=== PATIENT | female | born 1990 ===

== ENCOUNTER 2019-12-04 13:25 | Inpatient (IN) | payer BC ==
[2019-12-04] MEDS ORDERED: Sodium Chloride 0.9% 2.5 ML Syringe FLUSH PRN (17:06)
[2019-12-04] MEDS ORDERED: Methylergonovine 0.2 MG/1 ML Amp IM PRN (17:06)
[2019-12-04] MEDS ORDERED: Sodium Chloride 0.9% 10 ML Syringe FLUSH PRN (17:06)
[2019-12-04] MEDS ORDERED: Water For Irrigation,Sterile 1,000 ML Container IRR PRN (17:06)
[2019-12-04] MEDS ORDERED: Carboprost Tromethamine 250 MCG/1 ML Amp IM PRN (17:06)
[2019-12-04] MEDS ORDERED: Butorphanol 1 MG/ML SDV IVPUSH PRN (17:06)
[2019-12-04] MEDS ORDERED: Misoprostol 200 MCG Tab PO PRN (17:06)
[2019-12-04] MEDS ORDERED: Tranexamic Acid 1,000 MG in Sodium Chloride 0.9% 100 ML IV PRN (17:06)
[2019-12-04] MEDS ORDERED: Nalbuphine 10 MG/1 ML Vial IVPUSH PRN (17:06)
[2019-12-04] MEDS ORDERED: Lidocaine 1% 50 ML MDV INJECT PRN (17:06)
[2019-12-04] MEDS ORDERED: Sodium Chloride 0.9% 10 ML SDV IV PRN (17:06)
[2019-12-04] MEDS ORDERED: Misoprostol 25 MCG (1/4 of 100 MCG) Tab VAG PRN ×2 (17:09)
[2019-12-04] MEDS ORDERED: Terbutaline 1 MG/ML SDV SUBCUT PRN (17:09)
[2019-12-04] MEDS ORDERED: Oxytocin/0.9 % Sodium Chloride 30 UNIT/500 ML BAG IV SCH ×2 (17:15)
[2019-12-04] MEDS: Lactated Ringers 1,000 ML IV SCH (17:45)
[2019-12-04] MEDS ORDERED: Oxytocin/0.9 % Sodium Chloride 30 UNIT/500 ML BAG ONE (17:51)
[2019-12-04 18:34] LABS: BLOOD UREA NITROGEN,BUN 9 mg/dL (7.0-18.0); CARBON DIOXIDE,CO2 20.2 mmol/L (21.0-32.0); CHLORIDE,CL 103 mmol/L (98-107); GLUCOSE RANDOM 77 mg/dL (74-106); POTASSIUM,K 3.6 mmol/L (3.5-5.1); SODIUM,NA 137 mmol/L (136-145)
[2019-12-05] MEDS: Lactated Ringers 1,000 ML IV SCH ×3 (00:20→07:37)
[2019-12-05] MEDS ORDERED: Ropivacaine 0.2% PF 2 MG/ML 20 ML SDV ONE (00:21)
[2019-12-05] MEDS ORDERED: fentaNYL 100 MCG/2 ML SDV ONE (00:21)
[2019-12-05] MEDS ORDERED: Ropivacaine HCl/PF 100 ML ONE ×2 (00:22→11:55)
--- NOTE | 2019-12-05 01:00 | PCM.PREANE ---
Preanesthetic Assessment - Procedure Proposed Procedure: JENN - Anesthesia/Transfusion/Family Hx Anesthesia History: Prior Anesthesia Without Reaction Family History of Anesthesia Reaction: No Transfusion History: No Prior Transfusion(s) Intubation History: Unknown - Review of Systems General: No Symptoms Pulmonary: No Symptoms Cardiovascular: No Symptoms Gastrointestinal: No Symptoms Neurological: No Symptoms Other: Reports: None - Physical Assessment NPO Status Date: 12/05/19 NPO Status Time: 00:30 (Clear liquids) Height: 1.65 m Weight: 98.883 kg ASA Class: 2 Mental Status: Alert & Oriented x3 Airway Class: Mallampati = 2 Dentition: Reports: Normal Dentition Thyro-Mental Finger Breadths: 3 Mouth Opening Finger Breadths: 3 ROM/Head Extension: Full Lungs: Clear to Auscultation Cardiovascular: Regular Rate - Lab Values: Laboratory Last Values WBC 12.26 K/uL (4.0-11.0) H 12/04/19 17:54 RBC 4.36 M/uL (4.30-5.90) 12/04/19 17:54 Hgb 12.4 g/dL (12.0-16.0) 12/04/19 17:54 Hct 37.0 % (36.0-46.0) 12/04/19 17:54 MCV 84.9 fL (80.0-98.0) 12/04/19 17:54 MCH 28.4 pg (27.0-32.0) 12/04/19 17:54 MCHC 33.5 g/dL (31.0-37.0) 12/04/19 17:54 RDW Std Deviation 45.3 fl (28.0-62.0) 12/04/19 17:54 RDW Coeff of Allie 15 % (11.0-15.0) 12/04/19 17:54 Plt Count 317 K/uL (150-400) 12/04/19 17:54 MPV 9.40 fL (7.40-12.00) 12/04/19 17:54 Nucleated RBC % 0.0 /100WBC 12/04/19 17:54 Nucleated RBCs # 0 K/uL 12/04/19 17:54 Sodium 137 mmol/L (136-145) 12/04/19 17:54 Potassium 3.6 mmol/L (3.5-5.1) 12/04/19 17:54 Chloride 103 mmol/L (98-107) 12/04/19 17:54 Carbon Dioxide 20.2 mmol/L (21.0-32.0) L 12/04/19 17:54 BUN 9 mg/dL (7.0-18.0) 12/04/19 17:54 Creatinine 0.7 mg/dL (0.6-1.0) 12/04/19 17:54 Est Cr Clr Drug Dosing 106.70 mL/min 12/04/19 17:54 Estimated GFR (MDRD) > 60.0 ml/min 12/04/19 17:54 Glucose 77 mg/dL (74-106) 12/04/19 17:54 Uric Acid 5.8 mg/dL (2.6-7.2) 12/04/19 17:54 Calcium 8.2 mg/dL (8.5-10.1) L 12/04/19 17:54 Total Bilirubin 0.2 mg/dL (0.2-1.0) 12/04/19 17:54 AST 18 IU/L (15-37) 12/04/19 17:54 ALT 17 IU/L (14-63) 12/04/19 17:54 Alkaline Phosphatase 126 U/L (46-116) H 12/04/19 17:54 Total Protein 6.8 g/dL (6.4-8.2) 12/04/19 17:54 Albumin 2.6 g/dL (3.4-5.0) L 12/04/19 17:54 Globulin 4.2 g/dL (2.6-4.0) H 12/04/19 17:54 Albumin/Globulin Ratio 0.6 (0.9-1.6) L 12/04/19 17:54 SARS-CoV-2 RNA (RT-PCR) NEGATIVE (NEGATIVE) 12/04/19 17:22 Blood Type A POSITIVE 12/04/19 17:58 Antibody Screen NEGATIVE 12/04/19 17:58 - Allergies Allergies/Adverse Reactions: Allergies Allergy/AdvReac Type Severity Reaction Status Date / Time No Known Allergies Allergy Verified 12/04/19 17:06 - Blood Blood Available: No Product(s) Available: None - Anesthesia Plan Pre-Op Medication Ordered: None - Acknowledgements Anesthesia Type Planned: Epidural Pt an Appropriate Candidate for the Planned Anesthesia: Yes Alternatives and Risks of Anesthesia Discussed w Pt/Guardian: Yes Pt/Guardian Understands and Agrees with Anesthesia Plan: Yes Additional Comments: Discussed. ? answered. 4-5cm, active labor, pain /10. Permit signed. Acceptable candidate. PreAnesthesia Questionnaire - Past Health History Medical/Surgical History: Denies Medical/Surgical History WELT RANDER History: Reports: - SUBSTANCE USE Smoking Status *Q: Never Smoker Second Hand Smoke Exposure: No Recreational Drug Use History: No - CURRENT (IN HOUSE) MEDS Current Meds: Current Medications Butorphanol Tartrate (Stadol) 1 mg IVPUSH Q1H PRN PRN Reason: Pain Carboprost Tromethamine (Hemabate Ds) 250 mcg IM ASDIRECTED PRN PRN Reason: Post Hemorrhage Oxytocin/Sodium Chloride (Oxytocin 30 Unit/500 Ml-Ns) 30 unit in 500 mls @ 500 mls/hr IV TITRATE ELSA Tranexamic Acid 1,000 mg/ (Sodium Chloride) 110 mls @ 660 mls/hr IV ONETIME PRN PRN Reason: Bleeding Lactated Ringer's (Ringers, Lactated) 1,000 mls @ 150 mls/hr IV ASDIRECTED ELSA Last Admin: 12/05/19 00:20 Dose: 999 mls/hr Documented by: Oxytocin/Sodium Chloride (Oxytocin 30 Unit/500 Ml-Ns) 30 unit in 500 mls @ 2 mls/hr IV TITRATE ELSA; Protocol Last Titration: 12/04/19 22:41 Dose: 16 munits/min, 16 mls/hr Documented by: Lidocaine HCl (Xylocaine 1%) 50 ml INJECT ONETIME PRN PRN Reason: Laceration repair Methylergonovine Maleate (Methergine) 0.2 mg IM ASDIRECTED PRN PRN Reason: Post Hemorrhage Misoprostol (Cytotec) 200 mcg PO ONETIME PRN PRN Reason: Post Hemorrhage Misoprostol (Cytotec) 25 mcg VAG ONETIME PRN PRN Reason: Cervical Ripening Misoprostol (Cytotec) 25 mcg VAG Q4H PRN PRN Reason: Cervical Ripening Nalbuphine HCl (Nubain) 10 mg IVPUSH Q1H PRN PRN Reason: Pain (severe 7-10) Sodium Chloride (Saline Flush) 10 ml FLUSH ASDIRECTED PRN PRN Reason: Keep Vein Open Sodium Chloride (Saline Flush) 2.5 ml FLUSH ASDIRECTED PRN PRN Reason: Keep Vein Open Sodium Chloride (Normal Saline) 10 ml IV ASDIRECTED PRN PRN Reason: IV Use Sterile Water (Sterile Water For Irrigation) 1,000 ml IRR ASDIRECTED PRN PRN Reason: delivery Terbutaline Sulfate (Brethine) 0.25 mg SUBCUT ASDIRECTED PRN PRN Reason: Tacysystole Discontinued Medications Fentanyl (Sublimaze) Confirm Administered Dose 100 mcg .ROUTE .STK-MED ONE Stop: 12/05/19 00:22 Oxytocin/Sodium Chloride (Oxytocin 30 Unit/500 Ml-Ns) Confirm Administered Dose 30 unit in 500 mls @ as directed .ROUTE .STK-MED ONE Stop: 12/04/19 17:52 Ropivacaine (Naropin 0.2%) Confirm Administered Dose 100 mls @ as directed .ROUTE .STK-MED ONE Stop: 12/05/19 00:23 Ropivacaine (Naropin 0.2%) Confirm Administered Dose 20 ml .ROUTE .STK-MED ONE Stop: 12/05/19 00:22
--- NOTE | 2019-12-05 01:18 | PCM.SN.2 ---
- Free Text/Narrative Note: Requested for JENN on , active labor, pain 12/20. Discussed, ? answered, permit signed. Fluid bolus in-progress. Prep with Chloroprep. Space ID'd on first pass with air/saline. Reconfirmed with saline. Cath to 8cm without issues. Test dose Negative. Occlusive dressing. Bolus given over 6 minutes. Pain post 07/23. VSS. Infusion 8ml/hr with 4ml/20 min bolus. Tolerated well.
--- NOTE | 2019-12-05 12:03 | PCM.SN.2 ---
- Free Text/Narrative Note: Pushing. Bag changed. No problems noted.
--- NOTE | 2019-12-05 13:48 | PCM.DEL ---
L & D Note - General Info Date of Service: 12/05/19 Mother's Due Date: 12/04/19 - Delivery Note Labor: Induced by Oxytocin Delivery Outcome: Livebirth Infant Delivery Method: Spontaneous Vaginal Delivery-Single Delivery Mode: Vacuum Extraction Presentation: Left Occiput Anterior (MANUEL) Nuchal Cord: None Prep: Other Anesthesia Type: Epidural Amniotic Fluid Description: Clear Episiotomy Type: None Laceration: Vaginal Suture type: Vicryl Placenta: Intact, Spontaneous Cord: 3 Vessels Estimated Blood Loss: 200 Resuscitation Needed: Yes [place]: Suctioned Score 1 min: 7 Score 5 min: 8 Delivery Comments (Free Text/Narrative):: Liveborn female weight pending. - General Info Date of Service: 12/05/19 - Patient Data Weight - Most Recent: 98.883 kg Lab Results Last 24 Hours: Laboratory Results - last 24 hr 12/04/19 12/04/19 12/04/19 Range/Units 17:22 17:54 17:54 WBC 12.26 H (4.0-11.0) K/uL RBC 4.36 (4.30-5.90) M/uL Hgb 12.4 (12.0-16.0) g/dL Hct 37.0 (36.0-46.0) % MCV 84.9 (80.0-98.0) fL MCH 28.4 (27.0-32.0) pg MCHC 33.5 (31.0-37.0) g/dL RDW Std Deviation 45.3 (28.0-62.0) fl RDW Coeff of Allie 15 (11.0-15.0) % Plt Count 317 (150-400) K/uL MPV 9.40 (7.40-12.00) fL Nucleated RBC % 0.0 /100WBC Nucleated RBCs # 0 K/uL Sodium 137 (136-145) mmol/L Potassium 3.6 (3.5-5.1) mmol/L Chloride 103 (98-107) mmol/L Carbon Dioxide 20.2 L (21.0-32.0) mmol/L BUN 9 (7.0-18.0) mg/dL Creatinine 0.7 (0.6-1.0) mg/dL Est Cr Clr Drug Dosing 106.70 mL/min Estimated GFR (MDRD) > 60.0 ml/min Glucose 77 (74-106) mg/dL Uric Acid 5.8 (2.6-7.2) mg/dL Calcium 8.2 L (8.5-10.1) mg/dL Total Bilirubin 0.2 (0.2-1.0) mg/dL AST 18 (15-37) IU/L ALT 17 (14-63) IU/L Alkaline Phosphatase 126 H (46-116) U/L Total Protein 6.8 (6.4-8.2) g/dL Albumin 2.6 L (3.4-5.0) g/dL Globulin 4.2 H (2.6-4.0) g/dL Albumin/Globulin Ratio 0.6 L (0.9-1.6) SARS-CoV-2 RNA (RT-PCR) NEGATIVE (NEGATIVE) Blood Type Antibody Screen 12/04/19 Range/Units 17:58 WBC (4.0-11.0) K/uL RBC (4.30-5.90) M/uL Hgb (12.0-16.0) g/dL Hct (36.0-46.0) % MCV (80.0-98.0) fL MCH (27.0-32.0) pg MCHC (31.0-37.0) g/dL RDW Std Deviation (28.0-62.0) fl RDW Coeff of Allie (11.0-15.0) % Plt Count (150-400) K/uL MPV (7.40-12.00) fL Nucleated RBC % /100WBC Nucleated RBCs # K/uL Sodium (136-145) mmol/L Potassium (3.5-5.1) mmol/L Chloride (98-107) mmol/L Carbon Dioxide (21.0-32.0) mmol/L BUN (7.0-18.0) mg/dL Creatinine (0.6-1.0) mg/dL Est Cr Clr Drug Dosing mL/min Estimated GFR (MDRD) ml/min Glucose (74-106) mg/dL Uric Acid (2.6-7.2) mg/dL Calcium (8.5-10.1) mg/dL Total Bilirubin (0.2-1.0) mg/dL AST (15-37) IU/L ALT (14-63) IU/L Alkaline Phosphatase (46-116) U/L Total Protein (6.4-8.2) g/dL Albumin (3.4-5.0) g/dL Globulin (2.6-4.0) g/dL Albumin/Globulin Ratio (0.9-1.6) SARS-CoV-2 RNA (RT-PCR) (NEGATIVE) Blood Type A POSITIVE Antibody Screen NEGATIVE Med Orders - Current: Current Medications Butorphanol Tartrate (Stadol) 1 mg IVPUSH Q1H PRN PRN Reason: Pain Carboprost Tromethamine (Hemabate Ds) 250 mcg IM ASDIRECTED PRN PRN Reason: Post Hemorrhage Oxytocin/Sodium Chloride (Oxytocin 30 Unit/500 Ml-Ns) 30 unit in 500 mls @ 500 mls/hr IV TITRATE ELSA Tranexamic Acid 1,000 mg/ (Sodium Chloride) 110 mls @ 660 mls/hr IV ONETIME PRN PRN Reason: Bleeding Lactated Ringer's (Ringers, Lactated) 1,000 mls @ 150 mls/hr IV ASDIRECTED ELSA Last Admin: 12/05/19 07:37 Dose: 150 mls/hr Documented by: Oxytocin/Sodium Chloride (Oxytocin 30 Unit/500 Ml-Ns) 30 unit in 500 mls @ 2 mls/hr IV TITRATE ELSA; Protocol Last Titration: 12/05/19 12:42 Dose: 10 munits/min, 10 mls/hr Documented by: Lidocaine HCl (Xylocaine 1%) 50 ml INJECT ONETIME PRN PRN Reason: Laceration repair Methylergonovine Maleate (Methergine) 0.2 mg IM ASDIRECTED PRN PRN Reason: Post Hemorrhage Misoprostol (Cytotec) 200 mcg PO ONETIME PRN PRN Reason: Post Hemorrhage Misoprostol (Cytotec) 25 mcg VAG ONETIME PRN PRN Reason: Cervical Ripening Misoprostol (Cytotec) 25 mcg VAG Q4H PRN PRN Reason: Cervical Ripening Nalbuphine HCl (Nubain) 10 mg IVPUSH Q1H PRN PRN Reason: Pain (severe 7-10) Sodium Chloride (Saline Flush) 10 ml FLUSH ASDIRECTED PRN PRN Reason: Keep Vein Open Sodium Chloride (Saline Flush) 2.5 ml FLUSH ASDIRECTED PRN PRN Reason: Keep Vein Open Sodium Chloride (Normal Saline) 10 ml IV ASDIRECTED PRN PRN Reason: IV Use Sterile Water (Sterile Water For Irrigation) 1,000 ml IRR ASDIRECTED PRN PRN Reason: delivery Terbutaline Sulfate (Brethine) 0.25 mg SUBCUT ASDIRECTED PRN PRN Reason: Tacysystole Discontinued Medications Fentanyl (Sublimaze) Confirm Administered Dose 100 mcg .ROUTE .[employer] ONE Stop: 12/05/19 00:22 Last Admin: 12/05/19 01:56 Dose: Not Given Documented by: Oxytocin/Sodium Chloride (Oxytocin 30 Unit/500 Ml-Ns) Confirm Administered Dose 30 unit in 500 mls @ as directed .ROUTE .[employer] ONE Stop: 12/04/19 17:52 Last Admin: 12/05/19 01:56 Dose: Not Given Documented by: Ropivacaine (Naropin 0.2%) Confirm Administered Dose 100 mls @ as directed .ROUTE .[employer] ONE Stop: 12/05/19 00:23 Last Admin: 12/05/19 01:56 Dose: Not Given Documented by: Ropivacaine (Naropin 0.2%) Confirm Administered Dose 100 mls @ as directed .ROUTE .[employer] ONE Stop: 12/05/19 11:56 Ropivacaine (Naropin 0.2%) Confirm Administered Dose 20 ml .ROUTE .[employer] ONE Stop: 12/05/19 00:22 Last Admin: 12/05/19 01:56 Dose: Not Given Documented by: - Problem List & Annotations (1) Vaginal delivery SNOMED Code(s): 167453548 Code(s): O80 - ENCOUNTER FOR FULL-TERM UNCOMPLICATED DELIVERY Status: Acute Current Visit: Yes (2) Transient hypertension of SNOMED Code(s): 767603103 Code(s): O13.9 - GESTATIONAL HTN W/O SIGNIFICANT PROTEINURIA, UNSP TRIMESTER Status: Acute Current Visit: Yes (3) Vacuum extraction, delivered, current hospitalization SNOMED Code(s): 690964403 Code(s): O66.5 - ATTEMPTED APPLICATION OF VACUUM EXTRACTOR AND FORCEPS Status: Acute Current Visit: Yes - Problem List Review Problem List Initiated/Reviewed/Updated: Yes
[2019-12-05] MEDS ORDERED: Tranexamic Acid 1,000 MG in Sodium Chloride 0.9% 100 ML IV PRN (13:50)
[2019-12-05] MEDS ORDERED: Bisacodyl 10 MG Supp RECTAL PRN (13:50)
[2019-12-05] MEDS ORDERED: Acetaminophen 500 MG Tab PO PRN (13:50)
[2019-12-05] MEDS ORDERED: Witch Hazel Medicated Pads 40/Jar TOP PRN (13:50)
[2019-12-05] MEDS ORDERED: Benzocaine/Menthol 20%-0.5% Spray 78 GM Cannister TOP PRN (13:50)
[2019-12-05] MEDS ORDERED: Lanolin 100% Cream 7 GM Tube TOP PRN (13:50)
[2019-12-05] MEDS ORDERED: Ibuprofen 400 MG Tab PO PRN (13:50)
[2019-12-05] MEDS ORDERED: Docusate Sodium 100 MG Cap PO PRN (13:50)
[2019-12-05] MEDS: Acetaminophen 500 MG Tab PO PRN ×2 (16:05→20:12)
[2019-12-05] MEDS: Ibuprofen 800 MG Tab PO PRN (18:19)
[2019-12-06] MEDS: Ibuprofen 800 MG Tab PO PRN ×3 (01:01→14:12)
[2019-12-06] MEDS: Acetaminophen 500 MG Tab PO PRN ×2 (05:48→10:34)
--- NOTE | 2019-12-06 07:57 | PCM48HPAN ---
Post Anesthesia Note - EVALUATION WITHIN 48HRS OF ANESTHETIC Vital Signs in Normal Range: Yes Patient Participated in Evaluation: Yes Respiratory Function Stable: Yes Airway Patent: Yes Cardiovascular Function Stable: Yes Hydration Status Stable: Yes Pain Control Satisfactory: Yes Nausea and Vomiting Control Satisfactory: Yes Mental Status Recovered: Yes Vital Signs: Last Vital Signs Temp 36.4 C 12/06/19 07:00 Pulse 61 12/06/19 07:00 Resp 16 12/06/19 07:00 BP 112/53 L 12/06/19 07:00 Pulse Ox 98 12/06/19 07:00 - COMMENTS/OBSERVATIONS Free Text/Narrative:: Doing well.
--- NOTE | 2019-12-06 08:40 | OR ---
SURGEON: Bridgett Duff M.D. DATE OF PROCEDURE: 12/05/2019 PREOPERATIVE DIAGNOSES: 40-1/7 weeks' intrauterine , gestational hypertension. POSTOPERATIVE DIAGNOSES: 40-1/7 weeks' intrauterine , gestational hypertension, and protracted second stage of labor. PRIMARY SURGEON: Bridgett Duff MD ANESTHESIA: Epidural. ESTIMATED BLOOD LOSS: Less than 300 mL. FINDINGS: Liveborn female. score of 7 and 8. Weight is pending at the time of dictation. Placenta spontaneous, Schultze intact, with 3 vessels. Vaginal laceration noted and repaired. COMPLICATIONS: None known. DISPOSITION: Mother and baby are in LDR in good condition. BRIEF HISTORY: This is a 29-year-old, G1, P0. She has had labile blood pressures in , but negative preeclamptic evaluation. She presents at 40 weeks' gestation with a favorable cervix at 3 cm for induction of labor. She received IV Pitocin. care was complicated by bilateral choroid plexus cyst which resolved. Her was also conceived with letrozole. She has a history of PCOS. She is group B strep negative, A-positive, rubella immune. She had good progress of labor with the Pitocin. She had artificial rupture of membranes, clear fluid was noted. She progressed to complete. Initially, she did not have any urge to push due to epidural. She was allowed to labor down for an hour. Following this, she pushed for a full 4 hours. At this point, she was a +3 station with adequate pelvis. Estimated weight on my exam was 3600 g. The bladder had been drained with a Dodge catheter, which she had had in place, and I discussed options with her including proceeding with a section for arrest of descent versus assisted vaginal delivery with a vacuum with risks discussed including bleeding, infection, cephalhematoma, intracranial hemorrhage, and scalp lacerations as well as maternal vaginal and perineal lacerations. Understanding these risks, she does desire to proceed with a vacuum-assisted vaginal delivery. She was noted to be in the direct OA position, prepped slightly to left occiput anterior. DESCRIPTION OF PROCEDURE: After the patient had pushed for 4 hours and she was consented to a vacuum- assisted delivery, the Mityvac was placed 2 cm anterior to the posterior fontanelle and along the sagittal suture, and over 2 contractions with maternal expulsive efforts with no pop-offs, the head was delivered over the perineum with support. The vacuum was removed. Jaya maneuver and suprapubic pressure were utilized. The patient was placed in the supine position, and with this, the shoulder was rotated slightly and delivered without difficulty with subsequent delivery of the posterior shoulder and the infant's body without any difficulty. The infant was bulb suctioned by nose and mouth and handed to the mother in the presence of the nurse attending delivery. The is a liveborn female. score of 7 and 8. Weight is pending at the time of dictation. After the cord had ceased to pulsate at approximately 2 minutes of life, the cord was doubly clamped and cut. Cord blood was then collected for cord ABGs as well as routine cord blood sampling. Pitocin was initiated after delivery of the infant to assist with delivery the placenta which was delivered spontaneously, Schultze intact, with 3 vessels. Upon inspection of the pelvis and perineum, there were no periurethral, cervical, rectal, or perineal lacerations. There was a small vaginal laceration at the 5 o'clock position that was repaired using a running lock suture of 3-0 Vicryl. Final sponge, needle, and instrument counts were correct. There were no known complications. Mother and baby remained in LDR in good condition. SOLO BEAVERS /[id number]
--- NOTE | 2019-12-06 08:52 | PCM.PNPP ---
- General Info Date of Service: 12/06/19 Functional Status: Reports: Pain Controlled, Tolerating Diet, Ambulating, Urinating - Review of Systems General: Reports: No Symptoms HEENT: Reports: No Symptoms Pulmonary: Reports: No Symptoms Cardiovascular: Reports: No Symptoms Gastrointestinal: Reports: No Symptoms Genitourinary: Reports: No Symptoms Musculoskeletal: Reports: No Symptoms Skin: Reports: No Symptoms Neurological: Reports: No Symptoms Psychiatric: Reports: No Symptoms - Patient Data Vital Signs - Most Recent: Last Vital Signs Temp 36.4 C 12/06/19 07:00 Pulse 61 12/06/19 07:00 Resp 16 12/06/19 07:00 BP 112/53 L 12/06/19 07:00 Pulse Ox 98 12/06/19 07:00 Weight - Most Recent: 98.883 kg Lab Results - Last 24 Hours: Laboratory Results - last 24 hr 12/05/19 12/06/19 Range/Units 13:25 05:13 Hgb 10.3 L (12.0-16.0) g/dL Hct 31.3 L (36.0-46.0) % Cord ABG pH 7.239 (7.18-7.38) Cord ABG Base Excess -7 (-10--2) Cord VBG pH 7.315 (7.25-7.45) Cord VBG Base Excess -6 (-10--2) Med Orders - Current: Current Medications Acetaminophen (Tylenol Extra Strength) 500 mg PO Q4H PRN PRN Reason: Pain Acetaminophen (Tylenol Extra Strength) 1,000 mg PO Q4H PRN PRN Reason: Pain Last Admin: 12/06/19 05:48 Dose: 1,000 mg Documented by: Benzocaine/Menthol (Dermoplast Pain Relief 20%-0.5% [place]) 78 gm TOP ASDIRECTED PRN PRN Reason: Perineal Comfort Measure Last Admin: 12/05/19 15:35 Dose: 1 canister Documented by: Bisacodyl (Dulcolax) 10 mg RECTAL ONETIME PRN PRN Reason: Constipation Docusate Sodium (Colace) 100 mg PO BID PRN PRN Reason: Constipation Emollient Ointment (Lansinoh Hpa) 0 gm TOP ASDIRECTED PRN PRN Reason: Sore Nipples Last Admin: 12/05/19 18:20 Dose: 1 applic Documented by: Tranexamic Acid 1,000 mg/ (Sodium Chloride) 110 mls @ 660 mls/hr IV ONETIME PRN PRN Reason: Bleeding Ibuprofen (Motrin) 400 mg PO Q4H PRN PRN Reason: Pain Ibuprofen (Motrin) 800 mg PO Q6H PRN PRN Reason: Pain Last Admin: 12/06/19 08:11 Dose: 800 mg Documented by: Katy Fowler) 1 pad TOP ASDIRECTED PRN PRN Reason: comfort care Last Admin: 12/05/19 15:34 Dose: 1 tub Documented by: Discontinued Medications Butorphanol Tartrate (Stadol) 1 mg IVPUSH Q1H PRN PRN Reason: Pain Carboprost Tromethamine (Hemabate Ds) 250 mcg IM ASDIRECTED PRN PRN Reason: Post Hemorrhage Fentanyl (Sublimaze) Confirm Administered Dose 100 mcg .ROUTE .STK-MED ONE Stop: 12/05/19 00:22 Last Admin: 12/05/19 01:56 Dose: Not Given Documented by: Oxytocin/Sodium Chloride (Oxytocin 30 Unit/500 Ml-Ns) 30 unit in 500 mls @ 500 mls/hr IV TITRATE ELSA Tranexamic Acid 1,000 mg/ (Sodium Chloride) 110 mls @ 660 mls/hr IV ONETIME PRN PRN Reason: Bleeding Lactated Ringer's (Ringers, Lactated) 1,000 mls @ 150 mls/hr IV ASDIRECTED ELSA Last Admin: 12/05/19 07:37 Dose: 150 mls/hr Documented by: Oxytocin/Sodium Chloride (Oxytocin 30 Unit/500 Ml-Ns) 30 unit in 500 mls @ 2 mls/hr IV TITRATE ELSA; Protocol Last Titration: 12/05/19 13:25 Dose: 999 munits/min, 999 mls/hr Documented by: Oxytocin/Sodium Chloride (Oxytocin 30 Unit/500 Ml-Ns) Confirm Administered Dose 30 unit in 500 mls @ as directed .ROUTE .STK-MED ONE Stop: 12/04/19 17:52 Last Admin: 12/05/19 01:56 Dose: Not Given Documented by: Ropivacaine (Naropin 0.2%) Confirm Administered Dose 100 mls @ as directed .ROUTE .STK-MED ONE Stop: 12/05/19 00:23 Last Admin: 12/05/19 01:56 Dose: Not Given Documented by: Ropivacaine (Naropin 0.2%) Confirm Administered Dose 100 mls @ as directed .ROUTE .[employer] ONE Stop: 12/05/19 11:56 Last Admin: 12/05/19 19:10 Dose: Not Given Documented by: Lidocaine HCl (Xylocaine 1%) 50 ml INJECT ONETIME PRN PRN Reason: Laceration repair Methylergonovine Maleate (Methergine) 0.2 mg IM ASDIRECTED PRN PRN Reason: Post Hemorrhage Misoprostol (Cytotec) 200 mcg PO ONETIME PRN PRN Reason: Post Hemorrhage Misoprostol (Cytotec) 25 mcg VAG ONETIME PRN PRN Reason: Cervical Ripening Misoprostol (Cytotec) 25 mcg VAG Q4H PRN PRN Reason: Cervical Ripening Nalbuphine HCl (Nubain) 10 mg IVPUSH Q1H PRN PRN Reason: Pain (severe 7-10) Ropivacaine (Naropin 0.2%) Confirm Administered Dose 20 ml .ROUTE .[employer] ONE Stop: 12/05/19 00:22 Last Admin: 12/05/19 01:56 Dose: Not Given Documented by: Sodium Chloride (Saline Flush) 10 ml FLUSH ASDIRECTED PRN PRN Reason: Keep Vein Open Sodium Chloride (Saline Flush) 2.5 ml FLUSH ASDIRECTED PRN PRN Reason: Keep Vein Open Sodium Chloride (Normal Saline) 10 ml IV ASDIRECTED PRN PRN Reason: IV Use Sterile Water (Sterile Water For Irrigation) 1,000 ml IRR ASDIRECTED PRN PRN Reason: delivery Terbutaline Sulfate (Brethine) 0.25 mg SUBCUT ASDIRECTED PRN PRN Reason: Tacysystole - Infant Interaction Infant Disposition, : [place] to Nursery Feeding: Breastfed Infant; Nursed Well - Recovery Exam Fundal Tone: Firm Fundal Level: 1 Fingerbreadths Below Umbilicus Fundal Placement: Midline Lochia Amount: Scant Lochia Color: Rubra/Red Other Perinuem Description: Vaginal tear Bladder Status: Voiding Urinary Elimination: Voided - Exam General: Alert, Oriented Neck: Supple Lungs: Normal Respiratory Effort GI/Abdominal Exam: Soft, Non-Tender Extremities: Non-Tender, No Pedal Edema Skin: Warm, Dry, Intact Neurological: No New Focal Deficit Psy/Mental Status: Alert, Normal Affect, Normal Mood - Problem List & Annotations (1) Vacuum extraction, delivered, current hospitalization SNOMED Code(s): 932165659 Code(s): O66.5 - ATTEMPTED APPLICATION OF VACUUM EXTRACTOR AND FORCEPS Status: Acute Current Visit: Yes (2) Vaginal delivery SNOMED Code(s): 329935641 Code(s): O80 - ENCOUNTER FOR FULL-TERM UNCOMPLICATED DELIVERY Status: Acute Current Visit: Yes - Problem List Review Problem List Initiated/Reviewed/Updated: Yes - My Orders Last 24 Hours: My Active Orders 12/06/19 08:48 Ready for Discharge [RC] PER UNIT ROUTINE - Assessment Assessment:: 29yo P1 s/p VAVD at 40w1d, PPD#1 - Plan Plan:: Patient desires discharge home today if cleared; reviewed discharge instructions. Blood pressures have normalized since delivery.
== END 2019-12-06 16:50 | disposition home or self-care (01) | DRG 560 ==
LOC: MW.OB 13:25 → OBSVTOIN 12-05 13:25 → MW.OB 12-05 16:00
PROVIDERS: ADMIT Obstetrics & Gynecology; ATTEND Obstetrics & Gynecology
PROC: 10D07Z6 Extraction of Products of Conception, Vacuum, Via Natural or Artificial Opening (ICD-10-PCS; principal; 2019-12-05)
PROC: 3E033VJ Introduction of Other Hormone into Peripheral Vein, Percutaneous Approach (ICD-10-PCS; 2019-12-05)
PROC: 3E0R3BZ Introduction of Anesthetic Agent into Spinal Canal, Percutaneous Approach (ICD-10-PCS; 2019-12-05)
PROC: 00HU33Z Insertion of Infusion Device into Spinal Canal, Percutaneous Approach (ICD-10-PCS; 2019-12-05)
DX: O13.4 Gestational [pregnancy-induced] hypertension without significant proteinuria, complicating childbirth (principal); Z37.0 Single live birth; O66.5 Attempted application of vacuum extractor and forceps; Z3A.40 40 weeks gestation of pregnancy
CPT/HCPCS: 01967; 36415; 51702; 59025; 59409; 80053; 82803; 84550; 85014; 85018; 85027; 86592; 86850; 86900; 86901; A9270-GY; J2590; J7120; U0002